=== PATIENT | female | born 1990 | race Caucasian/White ===

== ENCOUNTER 2016-11-28 05:06 | Emergency (ER) | payer SELFPAY ==
[2016-11-28 06:42] LABS: ABSOLUTE BASOPHILS # (AUTO) 0.1 10^3/uL (0.0-0.2); ABSOLUTE EOSINOPHILS # (AUTO) 0.1 10^3/uL (0.0-0.6); ABSOLUTE LYMPHOCYTES (AUTO) 1.2 10^3/uL (0.5-4.7); ABSOLUTE MONOCYTES (AUTO) 0.7 10^3/uL (0.1-1.4); ABSOLUTE NEUT (AUTO) 9.6 10^3/uL (1.7-8.2); BASOPHILS % (AUTO) 0.6 % (0-2); EOSINOPHILS % (AUTO) 0.6 % (0-6); HEMATOCRIT 38.7 % (36.0-47.0); HEMOGLOBIN 13.1 g/dL (12.0-15.5); HGB HCT DIFFERENCE 0.6; LYMPHOCYTES % (AUTO) 10.2 % (13-45); MEAN CORPUSCULAR VOLUME 91 fl (80-97); MONOCYTES % (AUTO) 6.2 % (3-13); RED BLOOD COUNT 4.25 10^6/uL (3.72-5.28); RED CELL DISTRIBUTION WIDTH 14.3 % (11.5-14.0); SEGMENTED NEUTROPHILS % (AUTO) 82.4 % (42-78); WHITE BLOOD COUNT 11.6 10^3/uL (4.0-10.5)
[2016-11-28 06:46] LABS: APPEARANCE,URINE CLEAR; BILIRUBIN,URINE SMALL (NEGATIVE); GLUCOSE, URINE NEGATIVE (NEGATIVE); KETONES,URINE NEGATIVE (NEGATIVE); LEUKOCYTE ESTERASE,URINE NEGATIVE (NEGATIVE); NITRITE,URINE NEGATIVE (NEGATIVE); PROTEIN,URINE NEGATIVE (NEGATIVE); URINE SPECIFIC GRAVITY 1.011; UROBILINOGEN,URINE NEGATIVE mg/dL (<2.0)
--- NOTE | 2016-11-28 08:04 | EKG REPORT ---
SEVERITY:- ABNORMAL ECG - SINUS TACHYCARDIA RIGHT BUNDLE BRANCH BLOCK : Confirmed by: Barrington Diego MD 28-Nov-2016 08:03:51
--- NOTE | 2016-11-28 08:33 | ER Document Report ---
ED General - General Mode of Arrival: Medic Information source: Patient TRAVEL OUTSIDE OF THE [place] IN LAST 30 DAYS: No - HPI Patient complains to provider of: Difficulty Urinating Onset: Yesterday Onset/Duration: Gradual, Better Associated symptoms: Sinus pain/drainage, Other - "Feels off" "Confused" <CHRISTAL PEREZ - Last Filed: 11/28/16 08:28> <EDITH WESTFALL - Last Filed: 11/28/16 09:22> - General Chief Complaint: Other Stated Complaint: DOESN'T FEEL WELL Notes: Patient is a 26-year-old female presenting to the emergency department chief complaint difficulty urinating since yesterday. Patient reports "feeling off" for the past 2 days. Patient states she thought she was coming down with a head cold, so she has been taking Benadryl and cough medication. Patient states that she began to feel confused, but on arrival to the emergency department she was able to urinate and empty her bladder, and she states that she feels less confused now that the pressure has come off her head. Patient has a history of overdosing on Robitussin which resulted in intubation on 2015. 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 (CHRISTAL PEREZ) - Related Data Allergies/Adverse Reactions: lidocaine Allergy (Verified 11/28/16 05:48) Past Medical History - General Information source: Patient, [facility] Records - Social History Smoking Status: Unknown if Ever Smoked Family History: Reviewed & Not Pertinent - Patient was adopted - Past Medical History Cardiac Medical History: Reports: Hx Congestive Heart Failure Psychiatric Medical History: Reports: Other - Hx overdose on cough medication resulting in intubation. Past Surgical History: Reports: Hx Cardiac Catheterization, Hx Cardiac Surgery <CHRISTAL PEREZ - Last Filed: 11/28/16 08:28> Review of Systems - Review of Systems Constitutional: No symptoms reported EENT: See HPI, Nose congestion, Sinus pressure Cardiovascular: See HPI, Dizziness Respiratory: No symptoms reported Gastrointestinal: No symptoms reported Genitourinary: See HPI, Retention Female Genitourinary: No symptoms reported Musculoskeletal: No symptoms reported Skin: No symptoms reported Hematologic/Lymphatic: No symptoms reported Neurological/Psychological: See HPI, Confusion -: Yes All other systems reviewed and negative <CHRISTAL PEREZ - Last Filed: 11/28/16 08:28> Physical Exam - General General appearance: Alert In distress: None - HEENT Head: Normocephalic, Atraumatic Eyes: Normal Pupils: PERRL - Respiratory Respiratory status: No respiratory distress Chest status: Nontender Breath sounds: Normal Chest palpation: Normal - Cardiovascular Rhythm: Regular, Other - hx tetralogy of fallot Heart sounds: Normal auscultation - Metal valve clicking sound noted. Murmur: Yes - Abdominal Inspection: Normal Distension: No distension Bowel sounds: Normal Tenderness: Nontender - Back Back: Normal, Nontender - Extremities General upper extremity: Normal inspection, Nontender General lower extremity: Normal inspection, Nontender, Normal weight bearing - Neurological Neuro grossly intact: Yes Cognition: Normal Sylwia Coma Scale Eye Opening: Spontaneous Dupont Coma Scale Verbal: Oriented Sylwia Coma Scale Motor: Obeys Commands Sylwia Coma Scale Total: 15 Speech: Normal - Psychological Associated symptoms: Normal mood, Flat affect - Skin Skin Temperature: Warm Skin Moisture: Dry Skin Color: Normal <CHRISTAL PEREZ - Last Filed: 11/28/16 08:28> Course - Laboratory Result Diagrams: 11/28/16 06:17 11/28/16 06:17 <CHRISTAL PEREZ - Last Filed: 11/28/16 08:28> - Laboratory Result Diagrams: 11/28/16 06:17 11/28/16 06:17 <EDITH WESTFALL - Last Filed: 11/28/16 09:22> - Vital Signs Vital signs: Temp Pulse Resp BP Pulse Ox 98.2 F 88 19 132/86 H 98 11/28/16 06:27 11/28/16 06:27 11/28/16 08:00 11/28/16 06:27 11/28/16 07:00 - Laboratory Laboratory results interpreted by nc: 11/28/16 11/28/16 11/28/16 06:17 06:17 06:17 WBC 11.6 H RDW 14.3 H Seg Neutrophils % 82.4 H Lymphocytes % 10.2 L Absolute Neutrophils 9.6 H BUN 5 L Creatinine 0.51 L Total Protein 8.3 H Urine Bilirubin SMALL H Discharge <CHRISTAL PEREZ - Last Filed: 11/28/16 08:28> <EDITH WESTFALL - Last Filed: 11/28/16 09:22> - Discharge Clinical Impression: Viral upper respiratory tract infection with cough Antihistamines overdose Qualifiers: Encounter type: initial encounter Injury intent: undetermined intent Qualified Code(s): T45.0X4A - Poisoning by antiallergic and antiemetic drugs, undetermined , initial encounter Condition: Stable Disposition: HOME, SELF-CARE Additional Instructions: Your symptoms you have been feeling, including the inability to urinate, are probably due to the Benadryl and cough syrup. It would be best to avoid [id number] cough syrups and other antihistamines in the near future. Follow-up with your doctor if your upper respiratory tract infection does not improve. Scribe Attestation: 11/28/16 09:22 I personally performed the services described in the documentation, reviewed and edited the documentation which was dictated to the scribe in my presence, and it accurately records my words and actions. (EDITH WESTFALL) Scribe Documentation - Scribe Written by Willy:: Christal Perez 11/28/2016 0828 acting as scribe for :: Leelee <CHRISTAL PEREZ - Last Filed: 11/28/16 08:28>
[2016-11-28 08:34] LABS: ALANINE AMINOTRANSFERASE 22 U/L (9-52); ALBUMIN 4.8 g/dL (3.5-5.0); ALKALINE PHOSPHATASE 114 U/L (38-126); ANION GAP 11 (5-19); ASPARTATE AMINO TRANSFERASE 25 U/L (14-36); BILIRUBIN,DIRECT 0.4 mg/dL (0.0-0.4); BILIRUBIN,TOTAL 0.5 mg/dL (0.2-1.3); BLOOD UREA NITROGEN 5 mg/dL (7-20); CALCIUM 9.4 mg/dL (8.4-10.2); CARBON DIOXIDE 23 mmol/L (22-30); CHLORIDE 105 mmol/L (98-107); CREATININE RESULT 0.51 mg/dL (0.52-1.25); GLUCOSE 90 mg/dL (75-110); POTASSIUM 4.1 mmol/L (3.6-5.0); SODIUM 139.2 mmol/L (137-145); TOTAL PROTEIN 8.3 g/dL (6.3-8.2)
[2016-11-28 09:58] VITALS: BP 104/82
== END 2016-11-28 09:40 | disposition home or self-care (01) ==
LOC: ER 05:06
DX: T45.0X4A Poisoning by antiallergic and antiemetic drugs, undetermined, initial encounter (principal); R41.0 Disorientation, unspecified; J06.9 Acute upper respiratory infection, unspecified; B97.89 Other viral agents as the cause of diseases classified elsewhere; R05 Cough; R42 Dizziness and giddiness; R09.81 Nasal congestion; R33.9 Retention of urine, unspecified; Z88.4 Allergy status to anesthetic agent; Z95.2 Presence of prosthetic heart valve
CPT/HCPCS: 36415; 80053; 80307; 81001; 84703; 85025; 93005; 93010; 99284

== ENCOUNTER 2019-06-28 10:07 | Emergency (ER) | payer SELFPAY ==
[2019-06-28] MEDS ORDERED: IPRATROPIUM/ALBUTEROL 0.5-2.5 MG/3 ML AMPUL NEB ONE ×3 (10:31→13:47)
[2019-06-28] MEDS ORDERED: METHYLPREDNISOLONE INJ 125 MG/2 ML SDV IV ONE (10:31)
[2019-06-28] MEDS ORDERED: NORMAL SALINE 1000 ML 1,000 ML IV ONE (10:32)
--- NOTE | 2019-06-28 10:34 | ER Document Report ---
ED Medical Screen (RME) - General Chief Complaint: Cough Stated Complaint: COUGH Time Seen by Provider: 06/28/19 10:19 Notes: Patient is a 29-year-old female who presents the emergency department with a chief complaint of a cough. She has had a cough for the past month. States it has been on and off and gotten progressively worse. Patient states that she also feels achy and congested. Patient started vomiting yesterday. States that she had been vomiting bile. Patient has a past history of tetralogy of Fallot. Exam: Inspiratory and expiratory wheezes noted throughout. Coarse breath sounds noted throughout. Oxygen saturation 95% on room air. I have greeted and performed a rapid initial assessment of this patient. A comprehensive ED assessment and evaluation of the patient, analysis of test results and completion of medical decision making process will be conducted by an additional ED providers. TRAVEL OUTSIDE OF THE [place] IN LAST 30 DAYS: No - Related Data Allergies/Adverse Reactions: lidocaine Allergy (Verified 11/28/16 05:48) Past Medical History - Past Medical History Cardiac Medical History: Reports: Hx Congestive Heart Failure Past Surgical History: Reports: Hx Cardiac Catheterization, Hx Cardiac Surgery Physical Exam - Vital signs Vitals: Temp Pulse Resp BP Pulse Ox 98.4 F 81 16 131/75 H 96 06/28/19 10:12 06/28/19 10:12 06/28/19 10:12 06/28/19 10:12 06/28/19 10:12 Course - Vital Signs Vital signs: Temp Pulse Resp BP Pulse Ox 98.4 F 81 16 131/75 H 96 06/28/19 10:12 06/28/19 10:12 06/28/19 10:12 06/28/19 10:12 06/28/19 10:12
[2019-06-28 11:25] LABS: ABSOLUTE BASOPHILS # (AUTO) 0.1 10^3/uL (0.0-0.2); ABSOLUTE EOSINOPHILS # (AUTO) 0.1 10^3/uL (0.0-0.6); ABSOLUTE MONOCYTES (AUTO) 0.5 10^3/uL (0.1-1.4); ABSOLUTE NEUT (AUTO) 6.3 10^3/uL (1.7-8.2); BASOPHILS % (AUTO) 0.8 % (0-2); EOSINOPHILS % (AUTO) 0.8 % (0-6); HEMATOCRIT 39.9 % (36.0-47.0); HEMOGLOBIN 13.5 g/dL (12.0-15.5); LYMPHOCYTES % (AUTO) 13.1 % (13-45); MEAN CORPUSCULAR HEMOGLOBIN 31.3 pg (27.0-33.4); MEAN CORPUSCULAR HGB CONC 33.8 g/dL (32.0-36.0); MEAN CORPUSCULAR VOLUME 93 fl (80-97); MONOCYTES % (AUTO) 6.3 % (3-13); PLATELET COUNT 418 10^3/uL (150-450); RED BLOOD COUNT 4.31 10^6/uL (3.72-5.28); TOTAL CELLS COUNTED % (AUTO) 100 %
[2019-06-28 11:43] LABS: ALBUMIN 4.5 g/dL (3.5-5.0); ALKALINE PHOSPHATASE 99 U/L (38-126); ANION GAP 10 (5-19); ASPARTATE AMINO TRANSFERASE 27 U/L (14-36); BILIRUBIN,DIRECT 0.2 mg/dL (0.0-0.4); BILIRUBIN,TOTAL 0.5 mg/dL (0.2-1.3); BLOOD UREA NITROGEN 11 mg/dL (7-20); CALCIUM 9.1 mg/dL (8.4-10.2); CARBON DIOXIDE 25 mmol/L (22-30); CHLORIDE 105 mmol/L (98-107); GLUCOSE 77 mg/dL (75-110); POTASSIUM 4.3 mmol/L (3.6-5.0); TOTAL PROTEIN 7.7 g/dL (6.3-8.2)
--- NOTE | 2019-06-28 11:47 | RADIOLOGY REPORT (SQ) ---
EXAM DESCRIPTION: CHEST SINGLE VIEW COMPLETED DATE/TIME: 06/28/2019 11:37 am REASON FOR STUDY: cough x 1 month COMPARISON: None. EXAM PARAMETERS: NUMBER OF VIEWS: One view. TECHNIQUE: Single frontal radiographic view of the chest acquired. RADIATION DOSE: NA LIMITATIONS: None. FINDINGS: LUNGS AND PLEURA: No opacities, masses or pneumothorax. No pleural effusion. MEDIASTINUM AND HILAR STRUCTURES: No masses. Contour normal. HEART AND VASCULAR STRUCTURES: Heart size is borderline. There is a vascular stent. BONES: Scoliosis. HARDWARE: Sternotomy wires. Surgical clips. Vascular stent. OTHER: No other significant finding. IMPRESSION: Scoliosis. Surgical changes. Borderline cardiomegaly without pulmonary edema. TECHNICAL DOCUMENTATION: JOB ID: [id number] [employer]- All Rights Reserved Reading location - IP/workstation name: [email or web address]
[2019-06-28] MEDS: MAGNESIUM SULFATE/D5W 1 GM/100 ML RTUPB IV SCH ×2 (13:58→14:52)
--- NOTE | 2019-06-28 14:34 | ER Document Report ---
ED General - General Chief Complaint: Cough Stated Complaint: COUGH Time Seen by Provider: 06/28/19 10:19 TRAVEL OUTSIDE OF THE [place] IN LAST 30 DAYS: No - HPI Notes: Patient is a 29-year-old female with a history of tetralogy of Fallot who presents complaining of wheezing, dry cough, nasal congestion/discharge over the past month. She is able to eat and drink without difficulty. She is urinating normally and having normal bowel movements. She has no other concerns or complaints. No history of asthma. Denies any headache, fever, neck pain, sore throat, chest pain, palpitations, syncope, shortness of breath, dyspnea, abdominal pain, nausea/vomiting/diarrhea, urinary retention, dysuria, hematuria, or rash. - Related Data Allergies/Adverse Reactions: lidocaine Allergy (Verified 11/28/16 05:48) some anesthesia Allergy (Uncoded 06/28/19 11:02) Home Medications: Mucinex severe OTC, and imodium OTC as needed. Past Medical History - Social History Smoking Status: Former Smoker Frequency of alcohol use: a few times a week Drug Abuse: None Family History: Reviewed & Not Pertinent - Patient was adopted Patient has suicidal ideation: No Patient has homicidal ideation: No - Past Medical History Cardiac Medical History: Reports: Hx Congestive Heart Failure Past Surgical History: Reports: Hx Cardiac Catheterization, Hx Cardiac Surgery Review of Systems - Review of Systems -: Yes All other systems reviewed and negative Physical Exam - Vital signs Vitals: Temp Pulse Resp BP Pulse Ox 98.4 F 81 16 131/75 H 96 06/28/19 10:12 06/28/19 10:12 06/28/19 10:12 06/28/19 10:12 06/28/19 10:12 - Notes Notes: PHYSICAL EXAMINATION: GENERAL: Well-appearing, well-nourished and in no acute distress. HEAD: Atraumatic, normocephalic. EYES: Pupils equal round and reactive to light, extraocular movements intact, sclera anicteric, conjunctiva are normal. ENT: Nares patent and with clear discharge. oropharynx clear without exudates. No tonsilar hypertrophy or erythema. Moist mucous membranes. NECK: Normal range of motion, supple without lymphadenopathy LUNGS: scant wheezing b/l s/p treatments. No retractions or crackles. HEART: Regular rate and rhythm without murmurs, rubs, gallops. ABDOMEN: Soft, nontender, nondistended abdomen. No guarding, no rebound. N ormal bowel sounds present. No CVA tenderness bilaterally. Musculoskeletal: FROM to passive/active. Strength 5+/5. Efraín neg. No asymmetry to LE's. Extremities: No cyanosis, clubbing, or edema b/l. Peripheral pulses 2+. Capillary refill less than 3 seconds. NEUROLOGICAL: Normal speech, normal gait. PSYCH: Normal mood, normal affect. SKIN: Warm, Dry, normal turgor, no rashes or lesions noted. Course - Re-evaluation Re-evalutation: 06/28/19 14:31 Patient is an afebrile, well-hydrated, 29-year-old male who presents to the emergency department with an acute URI/cough. Vitals are acceptable without significant tachycardia, tachypnea, or hypoxia. PE is otherwise unremarkable. He is nontoxic-appearing and is tolerating p.o. without difficulty. She still does have scant wheezing b/l. Labs/imaging unremarkable otherwise. No further labs or imaging warranted at this time. Low suspicion for any meningitis, sepsis, peritonsillar/pharyngeal abscess, respiratory compromise, Garth's, or other emergent systemic condition at this time. Patient is aware this condition can change from initial presentation and she needs to monitor symptoms closely. I will send her home with steroid taper and inhaler as well as pocket rx for zithromax due to tetrology of fallot and to start if symptoms worsen. Conservative measures otherwise for symptoms. Recheck with your PCM in 2-3 days. Return to the ED with any worsening/concerning symptoms otherwise as reviewed in discharge. Patient is in agreement. - Vital Signs Vital signs: Temp Pulse Resp BP Pulse Ox 98.4 F 81 16 131/75 H 96 06/28/19 10:12 06/28/19 10:12 06/28/19 10:12 06/28/19 10:12 06/28/19 10:31 - Laboratory Result Diagrams: 06/28/19 11:16 06/28/19 11:16 Laboratory results interpreted by me: 06/28/19 11:16 Seg Neutrophils % 79.0 H Discharge - Discharge Clinical Impression: Cough, Nasal congestion Condition: Stable Disposition: HOME, SELF-CARE Additional Instructions: Maintain adequate fluid intake tylenol/ibuprofen as needed alternating every 3 hours for fever/body ache over the counter cold medication as needed for symptoms Humidified air may help Wash your hands regularly Wear a mask when coughing F/u: with your PCM in 2-3 days for a recheck Return to the ED with any fever, altered mental status/behavior, chest pain, palpitations, syncope, headache, neck pain/stiffness, shortness of breath, chest pains, wheezing, drooling, trouble swallowing/breathing, abdominal pain, n/v/d, rash, or worsening/concerning symptoms otherwise. Prescriptions: Prednisone [Deltasone 20 mg Tablet] 3 tab PO DAILY 3 Days tablet Albuterol Sulfate [Proair HFA Inhalation Aerosol 8.5 gm MDI] 2 puff IH Q4H PRN #1 mdi PRN Reason: Azithromycin [Zithromax 250 mg Tablet] 250 mg PO ASDIR PRN #6 tablet PRN Reason: Forms: Elevated Blood Pressure Referrals: YOLANDA GORDON MD [ACTIVE STAFF] - Follow up as needed
[2019-06-28 15:46] VITALS: BP 118/59
== END 2019-06-28 15:46 | disposition home or self-care (01) ==
LOC: ER 10:07
DX: J06.9 Acute upper respiratory infection, unspecified (principal); R05 Cough; R09.81 Nasal congestion; R06.2 Wheezing; Z88.4 Allergy status to anesthetic agent; Z79.899 Other long term (current) drug therapy; Z87.891 Personal history of nicotine dependence
CPT/HCPCS: 36415; 85025; 80053; 71045; J2930; J3475; J7030; J7620; 94640; 96361; 96365; 96366; 96375; 99283

== ENCOUNTER 2019-06-29 11:35 | Emergency (ER) | payer SELFPAY ==
[2019-06-29] MEDS ORDERED: IPRATROPIUM/ALBUTEROL 0.5-2.5 MG/3 ML AMPUL NEB ONE (12:03)
--- NOTE | 2019-06-29 12:06 | ER Document Report ---
ED Medical Screen (RME) - General Chief Complaint: Chest Tightness Stated Complaint: CHEST TIGHTNESS Time Seen by Provider: 06/29/19 11:50 Notes: Patient is a 29-year-old female who presents the emergency department with a chief complaint of a cough. She has had a cough for the past month. States it has been on and off and gotten progressively worse. Patient states that she also feels achy and congested. Patient started vomiting yesterday. States that she had been vomiting bile. Patient has a past history of tetralogy of Fallot. Patient was seen here in the emergency department yesterday and was discharged home. Patient states that she woke up this morning and had chest tightness in her left upper chest and in her shoulder. Patient took her first dose of prednisone this morning, which was 60 mg. She received magnesium yesterday and Solu-Medrol 125 mg IV. She also had breathing treatments yesterday. Exam: Expiratory wheezes noted throughout all lung sanchez. I have greeted and performed a rapid initial assessment of this patient. A comprehensive ED assessment and evaluation of the patient, analysis of test results and completion of medical decision making process will be conducted by an additional ED providers. TRAVEL OUTSIDE OF THE [place] IN LAST 30 DAYS: No - Related Data Allergies/Adverse Reactions: lidocaine Allergy (Verified 06/29/19 11:52) some anesthesia Allergy (Uncoded 06/29/19 11:52) Past Medical History - Past Medical History Cardiac Medical History: Reports: Hx Congestive Heart Failure Past Surgical History: Reports: Hx Cardiac Catheterization, Hx Cardiac Surgery Physical Exam - Vital signs Vitals: Temp Pulse Resp BP Pulse Ox 98.8 F 77 16 118/57 L 98 06/29/19 11:50 06/29/19 11:50 06/29/19 11:50 06/29/19 11:50 06/29/19 11:50 Course - Vital Signs Vital signs: Temp Pulse Resp BP Pulse Ox 98.8 F 77 16 118/57 L 98 06/29/19 11:50 06/29/19 11:50 06/29/19 11:50 06/29/19 11:50 06/29/19 11:50
[2019-06-29] MEDS ORDERED: ALBUTEROL SULFATE 0.083% NEB 2.5 MG/3 ML AMPUL NEB ONE (12:37)
[2019-06-29] MEDS ORDERED: ACETAMINOPHEN 325 MG TABLET PO ONE (12:37)
--- NOTE | 2019-06-29 12:43 | ER Document Report ---
ED General - General Chief Complaint: Cough Stated Complaint: CHEST TIGHTNESS Time Seen by Provider: 06/29/19 11:50 TRAVEL OUTSIDE OF THE [place] IN LAST 30 DAYS: No - HPI Notes: Patient is a 29-year-old female that presents to the emergency department for chief complaint of cough, shortness of breath and chest tightness. Patient reports dry nonproductive cough for the last month. She was seen in the ER yesterday and started on steroids as well as given breathing treatments. She states she was feeling better when she went home but when she woke up this morning was still feeling chest tightness. She used her albuterol inhaler 2 puffs this morning. Patient states she did not begin taking the azithromycin prescribed to her last night and again this morning. She took a 60 mg tablet of prednisone this morning as well. Patient states she is now having a sharp pain in her anterior left chest with coughing. Past Medical History: Tetralogy of flow Past Surgical History: Pediatric cardiac surgery Social History: Denies drugs alcohol and tobacco Family History: Reviewed and noncontributory for presenting illness Allergies: Reviewed, see documented allergy list. REVIEW OF SYSTEMS: CONSTITUTIONAL : No fever No chills No diaphoresis No recent illness EENT: No vision changes congestion No sore throat CARDIOVASCULAR: chest pain No palpitations RESPIRATORY: shortness of breath cough No difficulty breathing GASTROINTESTINAL: No abdominal pain No nausea No vomiting No diarrhea GENITOURINARY: No dysuria No hematuria No difficulty urinating MUSCULOSKELETAL: No back pain No leg pain No arm pain SKIN: No rashes No lesions LYMPHATIC: No swollen, enlarged glands. NEUROLOGICAL: No lightheadedness No headache No weakness No paresthesias PSYCHIATRIC: No anxiety No depression PHYSICAL EXAMINATION: Vital signs reviewed, nursing noted reviewed. GENERAL: Well-appearing, well-nourished and in no acute distress. HEAD: Atraumatic, normocephalic. EYES: Eyes appear normal, extraocular movements intact, sclera anicteric, conjunctiva are normal. ENT: nares patent, oropharynx clear without exudates. Moist mucous membranes. NECK: Normal range of motion, supple without lymphadenopathy LUNGS: Mild tachypnea without accessory muscle use or respiratory distress. Lung sounds diffusely wheezy to auscultation bilaterally in all lung sanchez. Prolonged expiratory phase. Tenderness to palpation over left anterior chest wall along lateral aspect of rib 2 without crepitus or deformity. HEART: Regular rate and rhythm without murmurs ABDOMEN: Soft, nontender, normoactive bowel sounds. No rebound, guarding, or rigidity. No masses appreciated. EXTREMITIES: Nontender, good range of motion, no pitting or edema. NEUROLOGICAL: No focal neurological deficits. Moves all extremities spontaneously Motor and sensory grossly intact on exam. PSYCH: Normal mood, normal affect. SKIN: Warm, Dry, normal turgor, no rashes or lesions noted on exposed skin - Related Data Allergies/Adverse Reactions: lidocaine Allergy (Verified 06/29/19 11:52) some anesthesia Allergy (Uncoded 06/29/19 11:52) Past Medical History - Social History Smoking Status: Current Some Day Smoker Family History: Reviewed & Not Pertinent - Patient was adopted Patient has suicidal ideation: No Patient has homicidal ideation: No - Past Medical History Cardiac Medical History: Reports: Hx Congestive Heart Failure Past Surgical History: Reports: Hx Cardiac Catheterization, Hx Cardiac Surgery Physical Exam - Vital signs Vitals: Temp Pulse Resp BP Pulse Ox 98.8 F 77 16 118/57 L 98 06/29/19 11:50 06/29/19 11:50 06/29/19 11:50 06/29/19 11:50 06/29/19 11:50 Course - Re-evaluation Re-evalutation: 06/29/19 12:40 Vitals reviewed. Nursing notes reviewed. Patient is well-appearing and in no respiratory distress. She is oxygenating well on room air. She has already taken prednisone 60 mg today and no further steroids indicated. Patient received DuoNeb in triage and reports feeling some improvement. She is still having significant wheezing to auscultation bilaterally and will be given another albuterol treatment. Patients EKG is unchanged from 2017. She has no risk factors for CAD and I am not suspicious of ACS as a cause of her chest pain. Her pain is reproducible with palpation and likely musculoskeletal from coughing for the last month. She is PERC criteria negative and I am not clinically suspicious for PE at this time. Patient symptoms consistent with URI with wheezing. Repeat x-ray will be obtained to evaluate for possible small pneumothorax, pneumomediastinum or underlying pneumonia. She had blood work drawn yesterday that was unremarkable and repeat blood work not currently indicated. 06/29/19 13:55 Patient had continued improvement of lung sounds and symptoms after albuterol. Chest x-ray shows no underlying acute process. Patient will be discharged home in stable condition with return precautions. Chest X-Ray 06/29/19 12:16 IMPRESSION: Cardiomegaly without a superimposed acute cardiopulmonary process. - Vital Signs Vital signs: Temp Pulse Resp BP Pulse Ox 98.8 F 77 23 H 122/69 98 06/29/19 11:50 06/29/19 11:50 06/29/19 12:09 06/29/19 12:09 06/29/19 12:15 - EKG Interpretation by Me Additional EKG results interpreted by me: 06/29/19 12:42 Interpreted by myself 1141: Normal sinus rhythm, rate 78, right bundle branch block, left posterior fascicular block, no significant change from 11/28/2016 Discharge - Discharge Clinical Impression: Bronchitis, Costochondritis, acute Condition: Stable Disposition: HOME, SELF-CARE Instructions: Bronchitis With Bronchospasm (Wheezing) ([facility]), Costochondritis ([facility]) Additional Instructions: Use your albuterol inhaler with spacer 2 puffs every 4 hours for cough and wheezing Please return to the emergency department if you have any worsening, or concern of your symptoms. Please return to the emergency department if you develop chest pain, difficulty breathing, severe abdominal pain, or ongoing vomiting. Please follow-up with your primary care physician in 2-3 days and any other recommended physicians. If prescribed, take all medications as directed. If you have any questions or concerns do not hesitate to return the emergency department for evaluation. Referrals: [facility] [Primary Care Provider] - Follow up in 3-5 days
--- NOTE | 2019-06-29 13:48 | RADIOLOGY REPORT (SQ) ---
EXAM DESCRIPTION: CHEST 2 VIEWS COMPLETED DATE/TIME: 06/29/2019 1:28 pm REASON FOR STUDY: chest tightness COMPARISON: None. EXAM PARAMETERS: NUMBER OF VIEWS: two views TECHNIQUE: Digital Frontal and Lateral radiographic views of the chest acquired. RADIATION DOSE: NA LIMITATIONS: none FINDINGS: LUNGS AND PLEURA: No consolidation, pleural effusion or pneumothorax. MEDIASTINUM AND HILAR STRUCTURES: Stable mediastinal and hilar contours. HEART AND VASCULAR STRUCTURES: The cardiac silhouette is enlarged but stable. The pulmonary vasculat ure is within normal limits. BONES: Unchanged sclerotic curvature. HARDWARE: Sternotomy wires, mediastinal clips, and probable pulmonary artery stent. OTHER: No other finding. IMPRESSION: Cardiomegaly without a superimposed acute cardiopulmonary process. TECHNICAL DOCUMENTATION: JOB ID: [id number] [employer]- All Rights Reserved Reading location - IP/workstation name: [email or web address]
[2019-06-29 16:02] VITALS: BP 124/73
--- NOTE | 2019-06-29 23:48 | EKG REPORT ---
SEVERITY:- ABNORMAL ECG - SINUS RHYTHM RBBB AND LPFB : Confirmed by: Lilliana Bae MD 29-Jun-2019 23:47:36
== END 2019-06-29 14:40 | disposition home or self-care (01) ==
LOC: ER 11:35
DX: J40 Bronchitis, not specified as acute or chronic (principal); M94.0 Chondrocostal junction syndrome [Tietze]; R05 Cough; R07.9 Chest pain, unspecified; R06.02 Shortness of breath; Z79.899 Other long term (current) drug therapy; F17.200 Nicotine dependence, unspecified, uncomplicated; I50.9 Heart failure, unspecified
CPT/HCPCS: 93005; 71046; 93010; J7620; 94640; 99285

== ENCOUNTER 2019-07-07 00:48 | Emergency (ER) | payer SELFPAY ==
[2019-07-07] MEDS ORDERED: AMOXICILLIN TRIHYDRATE 500 MG CAPSULE PO ONE (04:01)
[2019-07-07] MEDS ORDERED: KETOROLAC TROMETHAMINE 60 MG/2 ML SDV IM ONE (04:01)
--- NOTE | 2019-07-07 04:05 | ER Document Report ---
HPI - HPI Time Seen by Provider: 07/07/19 03:53 Pain Level: 3 Context: Patient is a 29-year-old female that comes emergency department for chief complaint of left ear pain. She states that she has been having ear pain for over a week now, she was recently treated for a viral upper respiratory infection as well, she states that now the pain is much worse, she feels popping and feels like she is underwater. She reports minimal symptoms on the opposite side. She still reports congestion but this is significantly improved. Cough is resolved. She denies fever/chills, nausea/vomiting, headache, or any other complaints at this time. LMP within the past month. History of cardiac surgery as an infant. - EENT EENT: REPORTS: Ear Pain - NEURO Neurology: REPORTS: Headache - REPRODUCTIVE LMP: 2 wk ago Reproductive: DENIES: : Past Medical History - General Information source: Patient - Social History Smoking Status: Never Smoker Frequency of alcohol use: None Drug Abuse: None Lives with: Family Family History: Reviewed & Not Pertinent - Patient was adopted Patient has suicidal ideation: No Patient has homicidal ideation: No Past Surgical History: Reports: Hx Cardiac Catheterization, Hx Cardiac Surgery - Immunizations Immunizations up to date: Yes Hx Diphtheria, Pertussis, Tetanus Vaccination: Yes Vertical Provider Document - CONSTITUTIONAL General Appearance: WD/WN, No Apparent Distress - INFECTION CONTROL TRAVEL OUTSIDE OF THE [place] IN LAST 30 DAYS: No - HEENT HEENT: Atraumatic, Normocephalic. negative: Normal ENT Exam - Left-sided obvious otitis media with bulging tympanic membrane and purulent effusion. Nont frank mastoid, normal canal, right ear with mild effusion but otherwise unremarkable. Mild sinus congestion. Unremarkable oropharyngeal exam and eye exam - NECK Neck: Normal Inspection - RESPIRATORY Respiratory: Breath Sounds Normal, No Respiratory Distress - CARDIOVASCULAR Cardiovascular: Regular Rate, Regular Rhythm - GI/ABDOMEN Gastrointestinal: Abdomen Soft, Abdomen Non-Tender - REPRODUCTIVE Female Genitalia: Normal Inspection - BACK Back: Normal Inspection - MUSCULOSKELETAL/EXTREMETIES Musculoskeletal/Extremeties: MAEW, FROM, Non-Tender - NEURO Level of Consciousness: Awake, Alert, Appropriate Motor/Sensory: No Motor Deficit, No Sensory Deficit - DERM Integumentary: Warm, Dry, No Rash Course - Re-evaluation Re-evalutation: Patient is worsening symptoms for over a week, has obvious left-sided otitis media with bulging tympanic membrane and purulent effusion. No mastoiditis. Mild nasal congestion otherwise unremarkable. Because of the findings patient will be treated for acute otitis media, discussed follow-up, exudations, return precautions. Patient states appreciation and agreement. - Vital Signs Vital signs: Temp Pulse Resp BP Pulse Ox 98.0 F 65 18 130/76 H 98 07/07/19 00:53 07/07/19 00:53 07/07/19 00:53 07/07/19 00:53 07/07/19 00:53 Discharge - Discharge Clinical Impression: Left otitis media Qualifiers: Otitis media type: suppurative Chronicity: acute Recurrence: non-recurrent Spontaneous tympanic membrane rupture: without spontaneous rupture Qualified Code(s): H66.002 - Acute suppurative otitis media without spontaneous rupture of ear drum, left ear Condition: Stable Disposition: HOME, SELF-CARE Additional Instructions: Your examination indicates a middle ear infection on the left side. Take the antibiotics as prescribed, take ibuprofen for pain, use the Flonase nasal spray to help this resolve faster. Follow-up with primary care. Come back if you are worse including swelling behind the ear, fevers, vomiting, or any other concerning or worsening symptoms. Prescriptions: Amoxicillin Trihydrate [Amoxil 500 mg Capsule] 1,000 mg PO BID 7 Days #28 capsule Fluticasone Propionate [Flonase Nasal Drayden 50 Mcg/Drayden 16 gm] 2 sprays NASL Q12 #1 inhaler Forms: Return to Work
[2019-07-07 04:53] VITALS: BP 129/80
== END 2019-07-07 04:43 | disposition home or self-care (01) ==
LOC: ER 00:48
DX: H66.002 Acute suppurative otitis media without spontaneous rupture of ear drum, left ear (principal); H92.02 Otalgia, left ear; R51 Headache; R09.81 Nasal congestion
CPT/HCPCS: 96372; 99282; J1885

== ENCOUNTER 2019-09-13 21:28 | Emergency (ER) | payer SELFPAY ==
--- NOTE | 2019-09-13 22:48 | ER Document Report ---
ED Medical Screen (RME) - General Chief Complaint: Congestion Stated Complaint: CONGESTION Time Seen by Provider: 09/13/19 22:44 TRAVEL OUTSIDE OF THE [place] IN LAST 30 DAYS: No - HPI Notes: 09/13/19 22:47 Patient is a 29-year-old female with a history of asthma who presents complaint of nasal congestion/discharge, postnasal drip, semi-productive cough over the past 1.5 weeks. She has felt some chills and subjective fevers. I have treated and performed a rapid initial assessment of this patient. A comprehensive ED assessment and evaluation of the patient, analysis of test results and completion of medical decision making process will be conducted by additional ED providers. PHYSICAL EXAMINATION: GENERAL: Well-appearing, well-nourished and in no acute distress. A&Ox4. Answers questions appropriately. Lungs: CTAB without retractions - Related Data Allergies/Adverse Reactions: lidocaine Allergy (Verified 09/13/19 22:44) some anesthesia Allergy (Uncoded 06/29/19 11:52) Past Medical History - Past Medical History Cardiac Medical History: Reports: Hx Congestive Heart Failure Past Surgical History: Reports: Hx Cardiac Catheterization, Hx Cardiac Surgery - Immunizations Immunizations up to date: Yes Hx Diphtheria, Pertussis, Tetanus Vaccination: Yes Physical Exam - Vital signs Vitals: Temp Pulse Resp BP Pulse Ox 98.0 F 77 18 113/68 99 09/13/19 21:52 09/13/19 21:52 09/13/19 21:52 09/13/19 21:52 09/13/19 21:52 Course - Vital Signs Vital signs: Temp Pulse Resp BP Pulse Ox 98.0 F 77 18 113/68 99 09/13/19 21:52 09/13/19 21:52 09/13/19 21:52 09/13/19 21:52 09/13/19 21:52
--- NOTE | 2019-09-13 23:41 | RADIOLOGY REPORT (SQ) ---
CLINICAL HISTORY: cough COMPARISON: 06/28/2019. 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 There is an unchanged stent within the presumed aortic arch. There is moderate rightward curvature of the thoracolumbar spine. Lungs are clear without consolidation, atelectasis, mass or edema. There is no pleural effusion. There is no pneumothorax. There are no acute osseous findings. IMPRESSION: Clear lungs.
[2019-09-14] MEDS ORDERED: AZITHROMYCIN 250 MG TABLET PO ONE (01:29)
[2019-09-14] MEDS ORDERED: PREDNISONE 20 MG TABLET PO ONE (01:29)
--- NOTE | 2019-09-14 01:45 | ER Document Report ---
HPI - HPI Time Seen by Provider: 09/13/19 22:44 Pain Level: Denies Context: Patient is a 29-year-old female that comes to the emergency department for chief complaint of cough, congestion, developing ear pain, intermittent wheezing. She states she started getting sick 1.5 weeks ago and has worsened. She denies abdominal pain, chest pain, vomiting. She states she is a former smoker, was told as a child that she might have asthma and has had pneumonia as a child for as well. She has an inhaler at home but is running out. She does have a spacer as well. She takes no other medications. Past medical history also includes tetralogy of fallow. - CONSTITUTIONAL Constitutional: REPORTS: Chills. DENIES: Fever - EENT EENT: REPORTS: Ear Pain. DENIES: Sore Throat, Eye problems - RESPIRATORY Respiratory: REPORTS: Trouble Breathing, Coughing - REPRODUCTIVE LMP: 09/11/2019 Reproductive: DENIES: :, Postmenopausal, Abnormal bleeding / discharge Past Medical History - General Information source: Patient - Social History Smoking Status: Former Smoker Chew tobacco use (# tins/day): No Frequency of alcohol use: Occasional Drug Abuse: None Lives with: Family Family History: Reviewed & Not Pertinent - Patient was adopted Patient has suicidal ideation: No Patient has homicidal ideation: No - Past Medical History Cardiac Medical History: Reports: Hx Congestive Heart Failure - as a kid, heart surgery complication Pulmonary Medical History: Reports: Hx Bronchitis - last time admitted Neurological Medical History: Reports: Hx Seizures Past Surgical History: Reports: Hx Cardiac Catheterization, Hx Cardiac Surgery - 3 open heart surgery, shunt, artifical valve - Immunizations Immunizations up to date: Yes Hx Diphtheria, Pertussis, Tetanus Vaccination: Yes Vertical Provider Document - CONSTITUTIONAL General Appearance: WD/WN, No Apparent Distress - INFECTION CONTROL TRAVEL OUTSIDE OF THE [place] IN LAST 30 DAYS: No - HEENT HEENT: Atraumatic, Normocephalic. negative: Normal ENT Exam - Right ear effusion noted, left ear otitis media with bulging, erythema, loss of landmarks. Canals and tragus normal. Mastoids normal. Oropharyngeal exam showing minimal erythema but otherwise unremarkable. Eyes unremarkable. - NECK Neck: Normal Inspection - RESPIRATORY Respiratory: Breath Sounds Normal, No Respiratory Distress - CARDIOVASCULAR Cardiovascular: Regular Rate, Regular Rhythm - GI/ABDOMEN Gastrointestinal: Abdomen Soft, Abdomen Non-Tender. negative: Abdomen Tender - BACK Back: Normal Inspection - MUSCULOSKELETAL/EXTREMETIES Musculoskeletal/Extremeties: MAEW, FROM, Non-Tender - NEURO Level of Consciousness: Awake, Alert, Appropriate Motor/Sensory: No Motor Deficit, No Sensory Deficit - DERM Integumentary: Warm, Dry, No Rash Course - Re-evaluation Re-evalutation: Chest x-ray negative. Patient well-appearing on exam with clear lungs, occasional cough, otitis media on exam. Patient reports wheezing at home, former smoker, history of requiring albuterol and prednisone. Providing with albuterol and prednisone for suspected bronchitis, treating with antibiotics, patient requesting treating for possible pneumonia coverage because of history of pneumonia as well, she was given him azithromycin instead of amoxicillin as a result. Discussed expectations, follow-up, return precautions. Patient states understanding and agreement. Stable at time of discharge. - Vital Signs Vital signs: Temp Pulse Resp BP Pulse Ox 98.0 F 77 18 113/68 99 09/13/19 21:52 09/13/19 21:52 09/13/19 21:52 09/13/19 21:52 09/13/19 21:52 Discharge - Discharge Clinical Impression: Upper respiratory infection Qualifiers: URI type: unspecified URI Qualified Code(s): J06.9 - Acute upper respiratory infection, unspecified Otitis media Qualifiers: Otitis media type: suppurative Chronicity: acute Laterality: left Recurrence: non-recurrent Spontaneous tympanic membrane rupture: without spontaneous rupture Qualified Code(s): H66.002 - Acute suppurative otitis media without spontaneous rupture of ear drum, left ear Condition: Stable Disposition: HOME, SELF-CARE Additional Instructions: Your chest x-ray is normal. Your evaluation is consistent with bronchitis and an ear infection. Take antibiotics as prescribed, take prednisone as prescribed, use albuterol inhaler if needed. Stay hydrated and rest. Symptoms should gradually resolve. Follow-up with primary care. Return if you worsen including rapid or labored breathing, spiking fevers, or any other concerning or worsening symptoms. Prescriptions: Prednisone [Deltasone 20 mg Tablet] 2 tab PO DAILY 5 Days #10 tablet Albuterol Sulfate [Proair HFA Inhalation Aerosol 8.5 gm MDI] 2 puff IH Q4H PRN #1 mdi PRN Reason: Azithromycin [Zithromax 250 mg Tablet] 250 mg PO ASDIR PRN #4 tablet PRN Reason: Forms: Return to Work
[2019-09-14 01:59] VITALS: BP 106/67
== END 2019-09-14 02:01 | disposition home or self-care (01) ==
LOC: ER 21:28
DX: J06.9 Acute upper respiratory infection, unspecified (principal); H66.92 Otitis media, unspecified, left ear; R05 Cough; H92.09 Otalgia, unspecified ear; R06.2 Wheezing; R68.83 Chills (without fever); Z87.891 Personal history of nicotine dependence; Z87.01 Personal history of pneumonia (recurrent); Z79.899 Other long term (current) drug therapy
CPT/HCPCS: 99283; 71046; J7512